=== PATIENT | male | born 1970 | race Caucasian/White ===

== ENCOUNTER 2023-05-25 19:58 | Emergency (ER) | payer OTHER ==
[2023-05-25] MEDS ORDERED: Sodium Chloride 0.9% 10 ML Syringe FLUSH PRN (21:07)
[2023-05-25 21:16] LABS: BASOPHILS ABSOLUTE AUTO 0.03 K/uL (0.00-0.10); BASOPHILS PERCENT AUTO 0.4 % (0.1-1.3); EOSINOPHILS ABSOLUTE AUTO 0.12 K/uL (0.00-0.40); EOSINOPHILS PERCENT AUTO 1.4 % (0.0-5.4); HEMATOCRIT 41.6 % (38.4-49.7); HEMOGLOBIN 14.6 g/dL (12.9-16.9); IMMATURE GRAN ABSOLUTE AUTO 0.05 K/uL (0.00-0.23); IMMATURE GRAN PERCENT AUTO 0.6 % (0.0-0.7); LYMPHOCYTES ABSOLUTE AUTO 2.74 K/uL (0.8-3.3); LYMPHOCYTES PERCENT AUTO 33.1 % (11.4-47.7); MEAN CORPUSCULAR HEMOGLOBIN 35.8 pg (31.6-35.5); MEAN CORPUSCULAR HGB CONC 35.1 g/dL (31.6-35.5); MONOCYTES PERCENT AUTO 8.5 % (3.3-12.6); NEUTROPHILS ABSOLUTE AUTO 4.64 K/uL (1.0-7.6); PLATELET COUNT,PLT 210 K/uL (130-375); RED BLOOD CELL COUNT 4.08 M/uL (4.14-5.76); WHITE BLOOD CELL COUNT,WBC 8.3 K/uL (3.2-11.0)
[2023-05-25 21:37] LABS: A/G RATIO 0.9 (1.2-2.2); ALANINE AMINOTRANSFERASE,ALT 19 U/L (12-78); ALBUMIN 3.3 g/dL (3.4-5.0); ALKALINE PHOSPHATASE 99 U/L (46-116); ANION GAP 11.4 mmol/L (5.0-14.0); ASPARTATE AMNIOTRANSFERASE,AST 21 U/L (15-37); BILIRUBIN TOTAL 0.2 mg/dL (0.2-1.0); BLOOD UREA NITROGEN,BUN 9 mg/dL (7-18); C-REACTIVE PROTEIN 0.08 mg/dL (0.0-0.3); CALCIUM 7.9 mg/dL (8.5-10.1); CARBON DIOXIDE,CO2 25 mmol/L (21-32); CHLORIDE,CL 105 mmol/L (100-108); CREATININE 0.9 mg/dL (0.8-1.3); EST CRCL DRUG DOSING (CG) 100.48 mL/min; ESTIMATED GFR 102 mL/min (>60); GLUCOSE RANDOM 98 mg/dL (74-106); POTASSIUM,K 3.8 mmol/L (3.6-5.2); PROTEIN TOTAL,TP 7.1 g/dL (6.4-8.2); SODIUM,NA 141 mmol/L (140-148)
[2023-05-25] MEDS ORDERED: Sodium Chloride 0.9% 10 ML Syringe FLUSH ONE (21:38)
[2023-05-25] MEDS ORDERED: Iopamidol 612 MG/ML 100 ML Bottle IV ONE (21:38)
[2023-05-25] MEDS ORDERED: Sodium Chloride 0.9% 50 ML IV ONE (21:38)
[2023-05-25] MEDS ORDERED: ceFAZolin 1 GM in Premix Bag 1 BAG IV SCH (22:46)
[2023-05-25] MEDS ORDERED: ceFAZolin 1 GM in Sodium Chloride 0.9% 50 ML IV SCH ×4 (23:00)
[2023-05-25] MEDS ORDERED: HYDROmorphone 0.5 MG/0.5 ML Syringe IV STA (23:00)
[2023-05-26] MEDS ORDERED: HYDROmorphone 0.5 MG/0.5 ML Syringe IM ONE (00:02)
[2023-05-26] MEDS ORDERED: HYDROmorphone 0.5 MG/0.5 ML Syringe IVPUSH ONE (00:08)
[2023-05-26] MEDS ORDERED: Sennosides/Docusate Sodium 50-8.6 MG Tab PO PRN (00:13)
[2023-05-26] MEDS ORDERED: diphenhydrAMINE 25 MG Cap PO PRN (00:13)
[2023-05-26] MEDS ORDERED: Ondansetron 4 MG Tab.DIS PO PRN (00:13)
[2023-05-26] MEDS ORDERED: HYDROmorphone/Normal Saline 6 MG/30 ML PCA Vial IV PRN (00:13)
[2023-05-26] MEDS ORDERED: diphenhydrAMINE 50 MG/ML SDV IVPUSH PRN (00:13)
[2023-05-26] MEDS ORDERED: Acetaminophen 325 MG Tab PO PRN (00:13)
[2023-05-26] MEDS ORDERED: Naloxone 0.4 MG/ML SDV IVPUSH PRN (00:13)
[2023-05-26] MEDS ORDERED: Magnesium Hydroxide 400 MG/5 ML Susp 30 ML Cup PO PRN (00:13)
[2023-05-26] MEDS ORDERED: Ondansetron 4 MG/2 ML SDV IVPUSH PRN (00:13)
[2023-05-26] MEDS ORDERED: HYDROmorphone 1 MG/ML Syringe IVPUSH PRN (00:13)
[2023-05-26] MEDS ORDERED: Ondansetron 4 MG/2 ML SDV IV PRN (00:13)
[2023-05-26] MEDS ORDERED: Nicotine Polacrilex 2 MG Gum CHEW PRN (00:13)
[2023-05-26] MEDS ORDERED: HYDROmorphone 0.5 MG/0.5 ML Syringe IVPUSH PRN (00:20)
[2023-05-26] MEDS: Sodium Chloride 0.9% 1,000 ML IV SCH ×2 (01:07→05:01)
[2023-05-26] MEDS ORDERED: ceFAZolin 1 GM in Premix Bag 1 BAG IV SCH (06:00)
[2023-05-26] MEDS ORDERED: Lidocaine 1% with EPINEPHrine 1:100,000 50 ML MDV ONE (06:51)
[2023-05-26] MEDS ORDERED: Bupivacaine 0.5% 50 ML MDV ONE (06:51)
[2023-05-26] MEDS ORDERED: Meropenem 500 MG SDV ONE (06:51)
[2023-05-26] MEDS ORDERED: ceFAZolin 1 GM in Sodium Chloride 0.9% 50 ML IV SCH (07:00)
[2023-05-26] MEDS ORDERED: fentaNYL 100 MCG/2 ML SDV ONE (09:46)
[2023-05-26] MEDS ORDERED: Midazolam 1 MG/ML 2 ML SDV ONE (09:46)
[2023-05-26] MEDS ORDERED: Propofol 200 MG/20 ML SDV ONE ×2 (09:46→10:12)
[2023-05-26] MEDS ORDERED: Bacitracin Oint 1 GM U/D Packet ONE (10:24)
[2023-05-26] MEDS ORDERED: Linezolid 600 MG/300 ML Premix Bag IRR ONE (10:27)
[2023-05-26] MEDS ORDERED: Lactated Ringers 1,000 ML ONE (10:30)
[2023-05-26] MEDS ORDERED: Diphtheria/Tetanus Toxoids,Adult (Td) 0.5 ML SDV IM ONE (12:00)
[2023-05-26] MEDS ORDERED: Lisinopril 10 MG Tab PO ONE (12:52)
== END 2023-05-26 13:35 | disposition home or self-care (01) ==
LOC: JP.ED 19:58 → JP.MS 23:11
PROVIDERS: ADMIT Registered Nurse; ATTEND Surgery
DX: S11.93XA Puncture wound without foreign body of unspecified part of neck, initial encounter (principal); I10 Essential (primary) hypertension; F17.210 Nicotine dependence, cigarettes, uncomplicated; Z23 Encounter for immunization; Z79.899 Other long term (current) drug therapy; Z20.822 Contact with and (suspected) exposure to COVID-19; W22.8XXA Striking against or struck by other objects, initial encounter; Y93.61 Activity, american tackle football
CPT/HCPCS: 36415; 70491; 80053; 80307; 84484; 85025; 86140; 87635; 90714; 93005; 96365; 96366; 96375; 96376; 99222; 99285; A9270; G0378; J0690; J1170; J2020; J2250; J2704; J3010; J3490; J7030; J7120; Q9967; J2185; U0002